=== PATIENT | male | born 1940 | race Caucasian/White ===

== ENCOUNTER 2016-09-22 08:42 | Outpatient (CLI) | payer OTHER | END 2016-09-22 08:43 | LOC: AMBL 08:42 | PROVIDERS: ATTEND Internal Medicine | DX: M54.9 Dorsalgia, unspecified (principal) ==

== ENCOUNTER 2017-06-27 09:22 | Emergency (ER) ==
[2017-06-27 09:32] VITALS: BP 155/82; TEMP 98.7; BMI 42.3
[2017-06-27] MEDS ORDERED: DECADRON 4 MG/ML SDV IM STA (09:35)
--- NOTE | 2017-06-27 09:38 | ED.PDOC ---
General ED Provider: Dr. ENRRIQUE ROWE Chief Complaint: Respiratory Complaint Stated Complaint: Coughing, congestion, getting yellow sputum. sore throat on the right side. no fever Time Seen by Physician: 09:35 Mode of Arrival: Walk-In Information Source: Patient Primary Care Provider: GEORGES JACKSON Nursing and Triage Documentation Reviewed and Agree: Yes Respiratory Complaint Exam - Respiratory Complaint/Exam Symptoms Are: Still present Timing: Constant Initial Severity: Mild Current Severity: Mild Location: Chest Character: Reports: Productive cough Aggravating: Reports: URI Alleviating: Reports: None Associated Signs and Symptoms: Reports: URI, Nasal congestion. Denies: Rapid breathing, Dyspnea, Fever, Chills, Chest pain, Pleuritic chest pain, Wheezing, Hemoptysis, Dizziness, Calf pain, Calf swelling, Edema, Hoarseness, Sinus discomfort, Vomiting, Sore throat, Weight loss, Decreased oral intake, Increased thirst, Increased appetite, Increased urination Related History: Reports: Similar episode History of Healthcare-Acquired Pneumonia: No Related Surgical History: Reports: None Pulmonary Embolism Risk Factors: None Cardiac Risk Factors: Reports: None Pseudomonas Risk Factors: Reports: None Tuberculosis Risk Factors: Reports: None Status Asthmaticus Risk Factors: Reports: None Home Oxygen Use: No Recent Stress Test: No Recent Echo/LV Function: No Current Antibiotic Use: No Current Asthma Medication Use: No Respiratory Distress: None Inadequate Respiratory Effort: No Dysphagia Present: No Stridor Present: No JVD Present: No Accessory Muscle Use: No Retractions: Not Present Differential Diagnoses: Pneumonia, Bronchitis Review of Systems - Review Of Systems Constitutional: Reports: No symptoms Eyes: Reports: No symptoms Ears, Nose, Mouth, Throat: Reports: Throat pain Respiratory: Reports: Cough Cardiac: Reports: No symptoms GI: Reports: No symptoms : Reports: No symptoms Musculoskeletal: Reports: No symptoms Skin: Reports: No symptoms Neurological: Reports: No symptoms Endocrine: Reports: No symptoms Hematologic/Lymphatic: Reports: No symptoms All Other Systems: Reviewed and Negative Past Medical History - Past Medical History Previously Healthy: Yes Endocrine: Reports: DM 2, Dyslipidemia Cardiovascular: Reports: None Respiratory: Reports: None Hematological: Reports: None Gastrointestinal: Reports: None Genitourinary: Reports: None Neuro/Psych: Reports: None Musculoskeletal: Reports: Gout Cancer: Reports: None - Surgical History General Surgical History: Reports: None - Family History Family History: Reports: None - Social History Smoking Status: Former smoker Hx Substance Use: No Alcohol Screening: None - Immunizations Tetanus Shot up to Date: No Physical Exam - Physical Exam Appearance: Well-appearing, No pain distress, Well-nourished Eyes: RENEE, EOMI, Conjunctiva clear ENT: Ears normal, Nose normal, Erythema Respiratory: Airway patent, Breath sounds clear, Breath sounds equal, Respirations nonlabored Cardiovascular: RRR, Pulses normal, No rub, No murmur GI/: Soft, Nontender, No masses, Bowel sounds normal, No Organomegaly Musculoskeletal: Normal strength, ROM intact, No edema, No calf tenderness Skin: Warm, Dry, Normal color Neurological: Sensation intact, Motor intact, Reflexes intact, Cranial nerves intact, Alert, Oriented Psychiatric: Affect appropriate, Mood appropriate Critical Care Note - Critical Care Note Total Time (mins): 0 Course - Course Orders, Labs, Meds: Orders Category Date Time Status Dexamethasone 4 mg/ml Inj [Decadron 4 mg/ml Sdv] MEDS 06/27/17 09:35 Stat 4 mg IM ONCE STA CHEST, 2 VIEWS PA & LAT Stat RADS 06/27/17 09:35 Ordered Medications Generic Name Dose Route Start Last Admin Trade Name Freq PRN Reason Stop Dose Admin Dexamethasone Sodium Phosphate 4 mg 06/27/17 09:35 Decadron 4 Mg/Ml Sdv IM 06/27/17 09:36 ONCE STA Vital Signs: Temp Pulse Resp BP Pulse Ox 06/27/17 09:23 98.7 F 99 H 20 155/82 H 97 Departure - Departure Disposition: HOME SELF-CARE Discharge Problem: URTI (acute upper respiratory infection) Instructions: Upper Respiratory Infection (ED) Condition: Good Pt referred to PMD for follow-up: Yes Additional Instructions: Keep checking the Blood sugars more frequently, as steroids will increase them Take medications with food If not better have a f/u with PMD Prescriptions: Cephalexin [Keflex] 500 mg PO Q12HR #20 capsule Prednisone 5 mg PO BIDWM #14 tablet Allergies/Adverse Reactions: Allergies No Known Allergies Allergy (Unverified 06/27/17 09:29) Home Medications: Ambulatory Orders Allopurinol [Allopurinol] 1 tab PO DAILY 03/06/14 Enalapril/Hydrochlorothiazide [Enalapril-Hctz 10-25 mg Tablet] 1 tab PO DAILY Glyburide/Metformin HCl [Glyburid-Metformin 1.25-250 mg] 1 tab PO BID 03/06/14 Metoprolol Tartrate [Metoprolol Tartrate] 1 tab PO DAILY 03/06/14 Cephalexin [Keflex] 500 mg PO Q12HR #20 capsule 06/27/17 Prednisone 5 mg PO BIDWM #14 tablet 06/27/17 Disposition Discussed With: Patient
--- NOTE | 2017-06-27 09:53 | DI ---
Exam: Two x-rays of the chest. Comparison: None available. Reason for exam: Coughing. FINDINGS: No pneumothorax, pleural effusion, or focal consolidation. Degenerative changes are seen in the thoracic spine. Operative changes are seen in the right shoulder. Impression: No acute cardiopulmonary process.
== END 2017-06-27 10:45 | disposition home or self-care (01) ==
LOC: ED 09:22
DX: J06.9 Acute upper respiratory infection, unspecified (principal)
CPT/HCPCS: 96372; 99282